=== PATIENT | male | born 1960 | race Caucasian/White ===

== ENCOUNTER → 2018-03-17 15:00 | Outpatient (CLI) | payer OTHER, SELFPAY | DX: Z23 Encounter for immunization (principal) | CPT/HCPCS: 90471; 90686 ==

== ENCOUNTER → 2019-01-12 07:55 | Outpatient (CLI) | payer OTHER, SELFPAY | DX: Z23 Encounter for immunization (principal) | CPT/HCPCS: 90471; 90686 ==

== ENCOUNTER → 2020-01-13 | Outpatient (CLI) | payer OTHER, SELFPAY | PROVIDERS: Referring Provider Internal Medicine; Visit Provider Internal Medicine | DX: Z23 Encounter for immunization (principal) | CPT/HCPCS: 90471; 90686 ==

== ENCOUNTER → 2020-04-13 09:54 | Outpatient (CLI) | payer OTHER, SELFPAY ==
[2020-04-13] MEDS: COVID-19 VACC(MODERNA-1)/PF 100 MCG/0.5 ML VIAL IM (09:59)
== END ==
PROVIDERS: PCP Family Medicine; Visit Provider Internal Medicine
DX: Z23 Encounter for immunization (principal)
CPT/HCPCS: 0011A; 91301

== ENCOUNTER → 2020-05-10 14:56 | Outpatient (CLI) | payer OTHER, SELFPAY ==
[2020-05-10] MEDS: COVID-19 VACC #2, MRNA(MOD) 100 MCG/0.5 ML VIAL IM (15:19)
== END ==
PROVIDERS: PCP Family Medicine; Visit Provider Internal Medicine
DX: Z23 Encounter for immunization (principal)
CPT/HCPCS: 0012A; 91301

== ENCOUNTER → 2021-03-02 09:46 | Outpatient (CLI) | payer OTHER, SELFPAY ==
[2021-03-02] MEDS: COVID-19 VACC #3, MRNA(MOD) 50 MCG/0.25 ML VIAL IM (09:52)
== END ==
PROVIDERS: PCP Family Medicine; Visit Provider Internal Medicine
DX: Z23 Encounter for immunization (principal)
CPT/HCPCS: 0013A; 91301

== ENCOUNTER → 2021-03-07 06:49 | Outpatient (CLI) | payer OTHER, SELFPAY | PROVIDERS: PCP Family Medicine; Referring Provider Internal Medicine; Visit Provider Internal Medicine | DX: Z23 Encounter for immunization (principal) | CPT/HCPCS: 90471; 90686 ==

== ENCOUNTER 2021-04-19 16:54 | Observation (INO) | payer OTHER, SELFPAY ==
[2021-04-19] VITALS (14 sets, daily range): BP systolic 116–139; BP diastolic 68–80; PULSE 62–94; RESP 14–32; TEMP 36.6–37.2; O2SAT 92–100; BMI 27.1
--- NOTE | 2021-04-19 17:01 | DI.CT.S_ITS ---
PROCEDURE: CT HEAD/BRAIN WO CON INDICATIONS: New onset seizure TECHNIQUE: Noncontrast 4.5 mm thick angled axial sections acquired from the foramen magnum to the vertex, with coronal and sagittal reformats. For radiation dose reduction, the following was used: automated exposure control, adjustment of mA and/or kV according to patient size. COMPARISON: None. FINDINGS: Image quality: Study limited secondary to patient positioning. The left posterior scalp in calvarium have been excluded. CSF spaces: Basal cisterns are patent. No extra-axial fluid collections. The ventricles are symmetric in size and shape. Brain: No intracranial bleeds or masses. There is cerebral volume loss for age, with resultant ventricular and sulcal prominence. There are periventricular and deep white matter chronic small vessel ischemic changes. There is intracranial internal carotid artery atherosclerosis. Skull and face: Calvarium and visualized facial bones appear intact, without suspicious lesions. Sinuses: Pansinus mucosal thickening most pronounced in the ethmoid sinuses and right maxillary sinus. Mastoid air cells are clear. IMPRESSION: CT head without acute intracranial abnormalities. No evidence for mass or mass effect. Pansinus disease. Dictated by: Ilan Shields M.D. on 04/19/2021 at 17:19 Approved by: Ilan Shields M.D. on 04/19/2021 at 17:22
[2021-04-19 17:10] LABS: Add Manual Diff / Slide Review NO; Basophils Absolute Auto 100 /uL (0-100); Basophils Percent Auto 0.8 % (0-2); Eosinophils Absolute Auto 200 /uL (0-450); Eosinophils Percent Auto 1.9 % (2-4); Hematocrit 46.9 % (41-53); Hemoglobin 15.6 g/dL (13.5-17.5); Lymphocytes Absolute Auto 4400 /uL (1100-4500); Lymphocytes Percent Auto 38.5 % (25-40); Mean Corpuscular HGB Conc 33.3 % (30-36); Mean Corpuscular Hemoglobin 29.8 PG (26-34); Mean Corpuscular Volume 89.4 fL (80-100); Monocytes Absolute Auto 1400 /uL (0-900); Monocytes Percent Auto 11.8 % (3-14); Neutrophils Absolute Auto 5400 /uL (1500-7000); Platelet Count 217 X10^3/uL (150-400); Red Blood Cell Count 5.24 X10^6/uL (4.5-5.9); Red Cell Distribution Width 13.4 % (11.6-14.8); White Blood Cell Count 11.4 X10^3/uL (4.5-11.0)
[2021-04-19 17:34] LABS: BUN Creatinine Ratio 12.4 (6-22); Blood Urea Nitrogen 13 mg/dL (9-20); Calcium 9.6 mg/dL (8.4-10.2); Carbon Dioxide 13 mmol/L (22-32); Chloride 104 mmol/L (98-107); Estimated Glomerular Filt Rate > 60.0 mL/min (>60); Ethanol (ETOH) < 10 mg/dL; Glucose 133 mg/dL (70-100); HEMOLYSIS < 15 (0-50); Magnesium 2.3 mg/dL (1.6-2.3); Potassium 3.3 mmol/L (3.4-5.1); Sodium 140 mmol/L (137-145)
[2021-04-19 17:50] LABS: Prolactin 45.2 ng/mL (3.7-17.9)
[2021-04-19 18:23] LABS: COVID19 -Nasal RAPID Negative (Negative)
[2021-04-19] MEDS: ONDANSETRON 4 MG/2 ML INJ IV (18:24)
[2021-04-19] MEDS: SODIUM CHLORIDE 0.9% 1,000 ML 150 ML IV (18:24)
[2021-04-19 18:46] LABS: D Dimer 597 ng/mL (<230)
[2021-04-19 18:47] LABS: Troponin I < 0.012 ng/mL (0.01-0.034)
--- NOTE | 2021-04-19 18:50 | DI.CT.S_ITS ---
PROCEDURE: CT ANGIO CHEST PE PROTOCOL INDICATIONS: Syncope. Elevated D-dimer. TECHNIQUE: After the administration of intravenous contrast, 2 mm thick sections acquired from the pulmonary apices to the posterior costophrenic angles. 3-dimensional maximum intensity projection (MIP) coronal and sagittal reformats were then acquired through the thorax. For radiation dose reduction, the following was used: automated exposure control, adjustment of mA and/or kV according to patient size. COMPARISON: None. FINDINGS: Image quality: Excellent. Pulmonary arteries: Pulmonary arteries are normal in size, and demonstrate no intraluminal filling defects to suggest central pulmonary embolism. Lungs and pleura: Lungs are clear. No pleural effusions or pneumothorax. Central and peripheral airways are patent. Mediastinum: Heart size is normal, without pericardial effusion. No mediastinal or hilar adenopathy. Thoracic aorta is normal in caliber and enhancement. Esophagus is normal in caliber, without hiatal hernia. Bones and chest wall: No suspicious bony lesions. Ribs and thoracic spine appear intact throughout. Thyroid gland is unremarkable. No axillary or supraclavicular adenopathy. Abdomen: Visualized upper abdominal solid organs appear normal in the early arterial phase of enhancement. IMPRESSION: No acute cardiopulmonary abnormalities. No acute pulmonary emboli visualized. Dictated by: Ilan Shields M.D. on 04/19/2021 at 19:18 Approved by: Ilan Shields M.D. on 04/19/2021 at 19:21
--- NOTE | 2021-04-19 19:44 | ED.SEIZURE ---
HPI - Seizure General Chief Complaint: Seizure Stated Complaint: Seizure, combative Time Seen by Provider: 04/19/21 17:00 Source: EMS Mode of arrival: EMS Limitations: altered mental status History of Present Illness HPI Narrative: the patient arrives by EMS with new onset seizures. He was a work, staff members noted he collapse only, falling backwards and hitting his head. He had a brief period of generalized tremor or seizure. Activity lasted about 1.5 minutes. Paramedics were called. They did not witness seizure activity. As he was waking, he became combative. Versed 5 mg IM was administered. He was still thrashing about upon arrival. Within minutes he fell asleep. No seizure activity was observed here in the ER. The patient visually well, he is a bit confused. He remembers not feeling well, then the events above apparently occurred. He has no history of seizures. He is on no significant medications or supplements. He consumes alcohol occasionally, no heavy drinking. He smokes marijuana, no other drug use. He denies headache, visual changes, peripheral numbness or weakness. He has no recent injuries. Related Data Home Medications Medication Instructions Recorded Confirmed acetaminophen 325 mg capsule 650 mg PO Q4H PRN 04/19/21 04/19/21 (Tylenol) albuterol sulfate 90 mcg/actuation 2 puff INHALATION Q4-6H PRN 04/19/21 04/19/21 aerosol inhaler (Ventolin HFA) beclomethasone dipropionate 40 2 spray INTRANASAL DAILY 04/19/21 04/19/21 mcg/actuation nasal HFA inhaler cholecalciferol (vitamin D3) 50 50 mcg PO DAILY 04/19/21 04/19/21 mcg (2,000 unit) capsule (Vitamin D3) famotidine 40 mg tablet 40 mg PO DAILY PRN 04/19/21 04/19/21 fexofenadine 180 mg tablet 180 mg PO DAILY 04/19/21 04/19/21 fluocinolone 0.025 % topical 1 applic TOPICAL BID 04/19/21 04/19/21 ointment fluticasone propionate 50 1 spray INTRANASAL DAILY 04/19/21 04/19/21 mcg/actuation nasal spray,suspension (Allergy Relief (fluticasone)) ibuprofen 600 mg tablet 600 mg PO Q6H PRN 04/19/21 04/19/21 ketoconazole 200 mg tablet 200 mg PO DAILY 04/19/21 04/19/21 loratadine-pseudoephedrine ER 10 1 tab PO DAILY PRN 04/19/21 04/19/21 mg-240 mg tablet,extended [id number] (Claritin-D 24 Hour) montelukast 10 mg tablet 10 mg PO DAILY 04/19/21 04/19/21 (Singulair) vit C 250 mg-vit E 200 unit-zinc 1 - 2 tab PO DAILY 04/19/21 04/19/21 12.5 mg-copper 1 [id number] tablet (ICaps AREDS2 (copper citrate)) Allergies Allergy/AdvReac Type Severity Reaction Status Date / Time No Known Drug Allergies Allergy Verified 04/19/21 17:45 Review of Systems Review of Systems Narrative: As per HPI. No other details are available given the patient's medical condition. Patient History Medical History (Updated 04/19/21 @ 20:10 by Osvaldo Gorman MD) Asthma Dependent edema Depression Seasonal allergies Social History Smoking Status: Never smoker Smoking Status: Never smoker alcohol intake frequency: 0-2 drinks per day Alcohol type: wine Substance Use Type: marijuana Exam Initial Vital Signs Initial Vital Signs: Vital Signs Temperature 97.9 F 04/19/21 17:00 Pulse Rate 85 04/19/21 17:00 Respiratory Rate 18 04/19/21 17:00 Blood Pressure 119/70 04/19/21 17:00 Pulse Oximetry 95 04/19/21 17:00 Const Other: initially combative, he appeared to have a 20-30 minute postictal. After awaking, he is calm. He is confused but eventually oriented x3. [facility] Head: normal to inspection, normocephalic and atraumatic Face and sinus: normal facial exam Mouth: oral mucosae normal and mucous membranes abnormal Teeth and gingiva: dentition normal Throat: posterior oropharynx normal Eyes Periorbital: periorbital findings normal Eyelids: eyelids normal Conjunctivae: conjunctivae normal Sclera: sclerae normal Cornea: corneas normal Pupils: PERRL EOM: EOM intact bilaterally Neck Neck: normal visual inspection, full ROM and No tender Chest Chest: normal inspection of the chest Resp Effort & Inspection: normal respiratory effort Auscultation: clear to auscultation bilaterally Cardio Rate: regular rate Rhythm: regular rhythm Heart Sounds: S1 normal, S2 normal and no murmurs GI Inspection: normal to inspection Palpation: soft and No tender Auscultation: normal bowel sounds Back/Spine/Pelvis Back: normal to inspection Cervical Spine: normal cervical lordosis Thoracic/Lumbar Spine: thoracic and lumbar spine normal to inspection Skin General: no rashes or lesions noted Neuro General: patient alert, patient awake, patient oriented x3 and no focal motor deficits ( After recovering from the postictal phase.) Motor: muscle tone normal throughout Sensory Exam: no sensory deficits noted Coordination: aaeexp-cn-nmyg test normal Comatose Patient: corneal reflex present Extrem General: normal to inspection Psych Appearance: well kempt Mental Status: mental status grossly normal Scores NIH Stroke Scale Level of Conciousness: Alert, keenly responsive Ask month/age: Answers both questions correctly. Open/close eyes, close hand: Performs both tasks correctly Best gaze horizontal: Normal Visual madera: No visual loss Facial palsy: Normal symetrical movement Left arm drift: No drift for full 10 sec Right arm drift: No drift for full 10 sec Left leg drift: No drift for full 5 sec Right leg drift: No drift for full 5 sec Limb ataxia: Absent Sensory on face/arms/legs: Normal, no sensory loss Best language: No aphasia, normal Dysarthria: Normal Extinction or inattention: No abnormality Total NIH Stroke scale score: 0 Course Course Course Narrative: The patient appears to had a seizure. He was witnessed by a staff in mental health clinic. He was working there at the time. He has no history of seizure. However I have concerns about syncope versus seizure. he has no calf tenderness. He has an elevated D-dimer. CTA of the chest is normal. Given his age and the significant event, I discussed this case with the hospitalist, TEDDY Murphy. She agreed to admit the patient to observation on telemetry and with neuro checks. Orders Ordered: ED Orders 04/19/21 17:00 Basic Metabolic Panel Stat Complete Blood Count AUTO DIFF Stat D Dimer Stat Ethanol (ETOH) Stat Magnesium Stat Prolactin Stat Troponin I Stat 04/19/21 17:01 CT head/brain wo con Stat Urinalysis Screen (Dip Only) Stat Urine Drug Screen, Rapid Stat 04/19/21 17:02 urine tox [Urine Drug Screen, Rapid] Stat 04/19/21 17:43 COVID19 -Nasal swab/Pre-Proc Stat 04/19/21 18:07 EKG-12 Lead Stat 04/19/21 18:50 CT angio chest PE protocol Stat Sodium Chloride (Normal Saline 0.9%) 1,000 mls @ 150 mls/hr IV CONT JOSE Last Admin: 04/19/21 18:24 Dose: 150 mls/hr Documented by: OMAR Discontinued Medications Levetiracetam 1,000 mg/ Sodium (Chloride) 110 mls @ 440 mls/hr IV NOW ONE Stop: 04/19/21 18:27 Ondansetron HCl (Ondansetron 4 Mg/2 Ml Inj) 4 mg IV NOW ONE Stop: 04/19/21 18:09 Last Admin: 04/19/21 18:24 Dose: 4 mg Documented by: OMAR Vital Signs Vital signs: Vital Signs - 8 hr 04/19/21 17:00 04/19/21 17:19 04/19/21 17:20 Temperature 97.9 F Pulse Rate 85 94 H 90 Respiratory Rate 18 20 19 Blood Pressure 119/70 116/72 Pulse Oximetry 95 96 94 04/19/21 17:30 04/19/21 18:00 04/19/21 18:05 Temperature Pulse Rate 86 82 85 Respiratory Rate 30 H 32 H 32 H Blood Pressure 119/70 130/71 Pulse Oximetry 92 98 100 04/19/21 18:12 04/19/21 18:15 04/19/21 18:30 Temperature Pulse Rate 78 78 76 Respiratory Rate 18 25 H Blood Pressure 129/73 129/73 126/74 Pulse Oximetry 100 99 98 04/19/21 18:45 04/19/21 19:10 04/19/21 19:15 Temperature Pulse Rate 71 70 78 Respiratory Rate 23 24 21 Blood Pressure 125/68 139/80 Pulse Oximetry 99 100 97 04/19/21 19:30 Temperature Pulse Rate 77 Respiratory Rate 20 Blood Pressure Pulse Oximetry 98 MDM - Seizure Lab Data Result diagrams: 04/19/21 17:00 04/19/21 17:00 Labs: Lab Results 04/19/21 04/19/21 04/19/21 Range/Units 17:00 17:00 17:00 WBC 11.4 H (4.5-11.0) X10^3/uL RBC 5.24 (4.5-5.9) X10^6/uL Hgb 15.6 (13.5-17.5) g/dL Hct 46.9 (41-53) % MCV 89.4 (80-100) fL MCH 29.8 (26-34) PG MCHC 33.3 (30-36) % RDW 13.4 (11.6-14.8) % Plt Count 217 (150-400) X10^3/uL Neut % (Auto) 47.0 L (50-75) % Lymph % (Auto) 38.5 (25-40) % Sully % (Auto) 11.8 (3-14) % Eos % (Auto) 1.9 L (2-4) % Baso % (Auto) 0.8 (0-2) % Neut # (Auto) 5400 (1193-2712) /uL Lymph # (Auto) 4400 (5989-9657) /uL Sully # (Auto) 1400 H (0-900) /uL Eos # (Auto) 200 (0-450) /uL Baso # (Auto) 100 (0-100) /uL D-Dimer (<230) ng/mL Sodium 140 (137-145) mmol/L Potassium 3.3 L (3.4-5.1) mmol/L Chloride 104 (98-107) mmol/L Carbon Dioxide 13 L (22-32) mmol/L BUN 13 (9-20) mg/dL Creatinine 1.05 (0.66-1.25) mg/dL Estimated GFR > 60.0 (>60) mL/min BUN/Creatinine Ratio 12.4 (6-22) Glucose 133 H (70-100) mg/dL Calcium 9.6 (8.4-10.2) mg/dL Magnesium 2.3 (1.6-2.3) mg/dL Troponin I (0.01-0.034) ng/mL Prolactin 45.2 H (3.7-17.9) ng/mL Ethyl Alcohol < 10 ( - 10) mg/dL SARS-CoV-2 (PCR) (Negative) 04/19/21 04/19/21 04/19/21 Range/Units 17:00 17:00 17:43 WBC (4.5-11.0) X10^3/uL RBC (4.5-5.9) X10^6/uL Hgb (13.5-17.5) g/dL Hct (41-53) % MCV (80-100) fL MCH (26-34) PG MCHC (30-36) % RDW (11.6-14.8) % Plt Count (150-400) X10^3/uL Neut % (Auto) (50-75) % Lymph % (Auto) (25-40) % Sully % (Auto) (3-14) % Eos % (Auto) (2-4) % Baso % (Auto) (0-2) % Neut # (Auto) (1591-4627) /uL Lymph # (Auto) (1356-0142) /uL Sully # (Auto) (0-900) /uL Eos # (Auto) (0-450) /uL Baso # (Auto) (0-100) /uL D-Dimer 597 H (<230) ng/mL Sodium (137-145) mmol/L Potassium (3.4-5.1) mmol/L Chloride (98-107) mmol/L Carbon Dioxide (22-32) mmol/L BUN (9-20) mg/dL Creatinine (0.66-1.25) mg/dL Estimated GFR (>60) mL/min BUN/Creatinine Ratio (6-22) Glucose (70-100) mg/dL Calcium (8.4-10.2) mg/dL Magnesium (1.6-2.3) mg/dL Troponin I < 0.012 (0.01-0.034) ng/mL Prolactin (3.7-17.9) ng/mL Ethyl Alcohol ( - 10) mg/dL SARS-CoV-2 (PCR) Negative (Negative) Point of Care Testing Glucose POC [address] scan - head: Radiologist's Impression: No acute findings. CT scan - chest: Radiologist's Impression: No PE. No acute findings. ECG Data Attestation: I personally reviewed and interpreted this ECG as follows: ( Normal sinus rhythm rate 82 beats per minute. Normal intervals. No ectopy. No acute ST T wave changes. Cardiac monitoring is normal sinus rhythm without ectopy.) Critical Care Time Critical Care Time Critical Care Time: Yes Total Critical Care Time: 45 Attestation: Critical care time included the initial patient assessment, evaluation EKG, lab in radiology data, and detailed discussion of the situation with the patient. I discussed the patien Discharge Plan Departure Patient Disposition: Admitted as Observation Clinical Impression: New onset seizure Referrals: Tiara Baker MD [Primary Care Provider] -
--- NOTE | 2021-04-19 20:02 | DI.MRI.S_ITS ---
PROCEDURE: MR STROKE Pre- and post-contrast brain MRI, non-contrast brain MR angiogram, pre- and postcontrast neck MR angiogram INDICATIONS: LOC possible Sz vs TIA vs cardiac TECHNIQUE: Brain: Noncontrast axial T1 spin echo, axial T2 fast spin echo, sagittal and axial FLAIR, coronal T2 fast spin echo, axial gradient echo, axial diffusion and ADC through the brain. After the administration of contrast, axial 3D VIBE of the cranial vasculature and brain. Brain MRA: Non-contrast 3-D time of flight MR angiogram, with multiple sgtcnct-crrxreegw-hxssdbkbcz (MIP) reformats performed. Neck MRA: Axial and sagittal TruFISP through the neck. Coronal dynamic MR angiogram during administration of contrast in the arterial and venous phases, with 3-dimenstional bgnsype-baaqvqlyc-pjoiyhqoib (MIP) reformats constructed from subtraction images. COMPARISON: [facility], CT, CT ANGIO CHEST PE PROTOCOL, 04/19/2021, 18:59. [facility], CT, CT HEAD/BRAIN WO CON, 04/19/2021, 17:10. FINDINGS: Image quality: There is motion artifact limiting evaluation. CSF spaces: There is mild cerebral volume loss with prominence of the ventricles and sulci. Basal cisterns are patent. No extra-axial fluid collections. Brain: Diffusion weighted images demonstrate no acute infarcts. No intracranial hemorrhage, mass, or mass effect. Brainstem appears normal. Normal intravascular flow voids are present. No abnormal intracranial enhancement. Skull and face: Calvarial marrow signal is normal. Orbits appear normal. Sinuses: There is moderate mucosal thickening within the ethmoid sinuses and mild mucosal thickening in the frontal and maxillary sinuses. Mastoid air cells are clear. BRAIN MR ANGIOGRAM: Anterior circulation: Intracranial internal carotid arteries are normal in size and patent bilaterally. The flow within the paired anterior cerebral arteries is patent bilaterally. There is a dominant left anterior cerebral artery likely representing an anatomic variant. The flow within the middle cerebral arteries is symmetric and patent bilaterally. The anterior communicating artery is patent. No high-grade stenoses, occlusions, or aneurysms. Posterior circulation: There is a left dominant vertebrobasilar system. The visualized portions of the vertebral arteries are patent and join to form a patent basilar artery. The flow within the posterior cerebral arteries is symmetric and patent bilaterally. No high-grade stenoses, occlusions, or aneurysms. NECK MR ANGIOGRAM: Carotids: Great vessels demonstrate conventional anatomy as they arise from the aortic arch. The origins of the common carotid arteries appear patent. The calibers and courses of both common carotid arteries are normal. The carotid bulbs appear widely patent. The internal carotid arteries demonstrate normal course and caliber. Posterior circulation: The origins of the vertebral arteries appear grossly patent, with evaluation limited by motion artifact. There is a left dominant vertebrobasilar system. More superior portions of both vertebral arteries appear patent, and join to form a normal appearing basilar artery. Miscellaneous: Subclavian arteries appear patent. Pre-contrast images through the neck demonstrate no soft tissue abnormalities. IMPRESSION: BRAIN MRI: 1. No evidence of infarct or other acute intracranial abnormality. 2. Mild cerebral volume loss. BRAIN MR ANGIOGRAM: 1. No high-grade stenosis or occlusion of the central intracranial arteries. 2. Prominent left anterior cerebral artery likely representing an anatomic variant. NECK MR ANGIOGRAM: 1. No high-grade stenosis or occlusion of the head and neck arteries. The carotid bulbs appear widely patent. Dictated by: Torey Hernandez M.D. on 04/19/2021 at 22:26 Approved by: Torey Hernandez M.D. on 04/19/2021 at 22:34
--- NOTE | 2021-04-19 20:05 | DI.ECHO.S_ITS ---
[facility]+ [facility] +---------+ : : [address] [place] : : : : [id number] : : : : Phone: [phone] Echocardiogram Report + + :Name: ROSA YAN Study Date: 04/20/2021 Height: 72 in : :[facility] ReadingLocation: Weight: 200 lb : : Gender: Male BSA: 2.1 m2 : :: 1960 Age: 60 yrs BP: 127/79 mmHg: :Reason For Study: Possible seizure or TIA : :Ordering Physician: : :MIKE ORTEGA [facility]- Performed By: Laron Cerda : :Referring: MIKE ORTEGA : + + Interpretation Summary The ejection fraction is estimated to be 55-60%. Bubble study w valsalva No obvious sign of shunt There is no significant valvular heart disease. Procedure: A two-dimensional transthoracic echocardiogram with color flow and Doppler was performed. The study quality was technically adequate. There is no prior echocardiogram noted for this patient. The subcostal views were difficult to obtain and are suboptimal in quality. The patient was in normal sinus rhythm during the exam. Left Ventricle: The left ventricle is normal in size and wall thickness. The ejection fraction is estimated to be 55-60%. Left ventricular wall motion is normal. Right Ventricle: The right ventricle is normal in size and function. Atria: Both atria are normal in size. Bubble study w valsalva No obvious sign of shunt. Mitral Valve: The mitral valve is normal. There is no mitral regurgitation noted. Aortic Valve: The aortic valve is trileaflet. The aortic valve opens well. No aortic regurgitation is present. Tricuspid Valve: The tricuspid valve is normal. There is a trace or physiologic amount of tricuspid regurgitation. Pulmonary artery pressures cannot be estimated because of the lack of a measurable TR jet velocity. Pulmonic Valve: The pulmonic valve is normal in structure and function. Great Vessels: The aortic root is normal size. The ascending aorta is normal in size. The aortic arch is normal in size. The inferior vena cava was not well visualized. Pericardium/ Pleura There is no pericardial effusion. There is an anterior echo-free space consistent with a fat pad. There is no pleural effusion. MMode/2D Measurements & Calculations LVIDd: 5.3 cm LVOT diam: 2.3 cm LVIDs: 3.6 cm Ao root diam: 3.6 cm FS: 32.8 % asc Aorta Diam: 3.2 cm IVSd: 0.80 cm Ao Arch Diam (Prox Trans): 2.7 cm LVPWd: 0.88 cm LV lewis. diameter/BSA (cm/m^2): 2.5 LV sys. diameter/BSA (cm/m^2): 1.7 LA A2 area: 19.5 cm2 RA long axis: 5.7 cm LA A4 area: 20.2 cm2 RA area: 15.3 cm2 LA length (vol): 5.6 cm RA vol: 35.2 ml LA vol: 59.6 ml RA : 16.5 ml/m2 LA vol index: 28.0 ml/m2 TAPSE: 2.6 cm Doppler Measurements & Calculations Ao V2 max: 157.5 cm/sec LVOT Max Rey: 133.1 cm/sec Ao V2 mean: 116.6 cm/sec LV V1 max P.1 mmHg Ao max P.9 mmHg LV V1 VTI: 23.2 cm Ao mean P.8 mmHg ОЛЕГ(I,D): 3.3 cm2 Ao V2 VTI: 30.3 cm ОЛЕГ(V,D): 3.6 cm2 sev ratio: 0.77 ОЛЕГ indexed to BSA (cm^2/m^2): 1.5 MV E max rey: 74.8 cm/sec PA V2 max: 115.5 cm/sec MV A max rey: 56.7 cm/sec PA V2 mean: 84.6 cm/sec MV E/A: 1.3 PA mean P.1 mmHg Med Peak E' Rey: 9.2 cm/sec PA pr(Accel): 19.1 mmHg E/E' med: 8.2 Lat Peak E' Rey: 12.5 cm/sec E/E' lat: 6.0 E/e' average: 7.1 MV dec time: 0.21 sec SV(LVOT): 99.3 ml Reading Physician:12:52 PM
[2021-04-19 20:29] LABS: Cholesterol 213 mg/dL (140-199); HDL Cholesterol 71 mg/dL (40-60); Hemoglobin A1C% w Est Avg Glu 5.8 % (4.0-6.0); LDL Cholesterol Calculated 116 mg/dL (<100); Triglycerides 130 mg/dL (35-150)
[2021-04-19 20:48] LABS: NT-proBNP (BNP-Adult 18+) 35 pg/mL (<125)
[2021-04-19] MEDS: ATORVASTATIN 20 MG TABLET 80 MG PO (22:15)
[2021-04-19 22:33] LABS: Appearance Urine UA CLEAR; Bilirubin Urine UA NEGATIVE (NEGATIVE); Color Urine UA YELLOW; Glucose Urine UA NEGATIVE (Negative); Ketones Urine UA 2+ (NEGATIVE); Leukocyte Esterase Urine UA NEGATIVE (NEGATIVE); Nitrite Urine UA NEGATIVE (Negative); Occult Blood Urine UA NEGATIVE (Negative); Protein Urine UA NEGATIVE (Negative); RBC Urine 0-1/HPF (0-5/HPF); Squamous Epithelial Cell Urine 0-1 /HPF (0-5/HPF); Urobilinogen Urine UA 0.2 E.U./dL (0.2); WBC Urine None Seen (0-5/HPF)
[2021-04-19 22:34] LABS: Bacteria Urine Occasional (0-1)
[2021-04-19 22:39] LABS: Culture Indicated Urine Cult Not Indicated
[2021-04-20 00:08] VITALS: O2SAT 98
[2021-04-20 01:06] VITALS: BP 127/71; PULSE 99; RESP 18; TEMP 37.5; O2SAT 98
--- NOTE | 2021-04-20 01:13 | PM.HP.1 ---
History of Present Illness History of Present Illness Date Patient Seen: 04/19/21 Time Patient Seen: 20:22 Chief complaint: Seizure, combative Narrative: Yared Wing is a pleasant 60 year old male with a medical history of asthma and depression who arrived by EMS to the ED with reported new onset seizures.? 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 He was reported to have had a brief period of? generalized tremor or seizure. Activity lasted about 1.5 minutes. ? Paramedics were called.? They did not witness seizure activity.? As he was waking, he became combative.? Versed 5 mg IM was administered.? He was still thrashing about upon arrival.? Within minutes he fell asleep.? No seizure activity was observed in the ED.? Upon waking the patient was visually well, a bit confused.?The patient is unable to recall any of the days events, and reports that he had shovel the driveway of snow and felt well this morning. He has no history of seizures, cardiac, stroke, or TIA.? He is on no significant supplements and takes QVAR, Ventolin, singular, a water pill, and medication for depression. He denies any recent illness trauma or injury. Patient reports that only change was that his PCP Dr. Baker had increased his water pill from a half tab to 1 full tab approximately a month and a half ago. Patient denies any issues with blood pressure/hypotension. Patient reports that in the recent past he has been drinking wine daily and recently decreased to a couple times a week. He smokes marijuana regularly, no other drug use.? He denies headache, visual changes, cough, shortness of breath, fever, body aches, chills, abdominal pain, nausea, vomiting, diarrhea, chest pain, peripheral numbness or weakness.? Patient denies any urinary issues or history of UTI, or prostate. Patient also denies any family history of seizure, cardiac, or neurological issues. At the time of admit patient's temp 97.9?, BP 139/80, HR 77, RR 20, 98% on room air. Patient is alert orientated, no deficits noted. Patient does have a WBC count of 11.4, potassium 3.3, bicarb 13, glucose 133, D-dimer of 597. CTA was completed and negative for PE, head CT demonstrated no acute intracranial processes. Patient admitted for loss of consciousness resulting in head injury of unknown etiology, Mild Hypokalemia. 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 Prior Living Arrangements House Safety & Behavioral: Feels Safe in Current Yes Environment Been Physically Hurt or No Threatened By a Person Suicidal Ideation Description None Suicide Plan Description No Plan Tobacco & Substance use: Smoking Status Never smoker alcohol intake current alcohol intake frequency 0-2 drinks per day, hx of daily wine intake. Substance Use Type marijuana Meds Home Medications and Allergies Home Medications Medication Instructions Recorded Confirmed Type acetaminophen 325 mg capsule 650 mg PO Q4H PRN 04/19/21 04/19/21 History (Tylenol) albuterol sulfate 90 mcg/actuation 2 puff INHALATION Q4-6H PRN 04/19/21 04/19/21 History aerosol inhaler (Ventolin HFA) beclomethasone dipropionate 40 2 spray INTRANASAL DAILY 04/19/21 04/19/21 History mcg/actuation nasal HFA inhaler cholecalciferol (vitamin D3) 50 50 mcg PO DAILY 04/19/21 04/19/21 History mcg (2,000 unit) capsule (Vitamin D3) famotidine 40 mg tablet 40 mg PO DAILY PRN 04/19/21 04/19/21 History fexofenadine 180 mg tablet 180 mg PO DAILY 04/19/21 04/19/21 History fluocinolone 0.025 % topical 1 applic TOPICAL BID 04/19/21 04/19/21 History ointment fluticasone propionate 50 1 spray INTRANASAL DAILY 04/19/21 04/19/21 History mcg/actuation nasal spray,suspension (Allergy Relief (fluticasone)) ibuprofen 600 mg tablet 600 mg PO Q6H PRN 04/19/21 04/19/21 History ketoconazole 200 mg tablet 200 mg PO DAILY 04/19/21 04/19/21 History loratadine-pseudoephedrine ER 10 1 tab PO DAILY PRN 04/19/21 04/19/21 History mg-240 mg tablet,extended [id number] (Claritin-D 24 Hour) montelukast 10 mg tablet 10 mg PO DAILY 04/19/21 04/19/21 History (Bookerir) vit C 250 mg-vit E 200 unit-zinc 1 - 2 tab PO DAILY 04/19/21 04/19/21 History 12.5 mg-copper 1 [id number] tablet (ICaps AREDS2 (copper citrate)) Allergies Allergy/AdvReac Type Severity Reaction Status Date / Time No Known Drug Allergies Allergy Verified 04/19/21 17:45 Review of Systems Review of Systems Narrative: All 12 point systems reviewed with the patient and are negative except otherwise documented. Exam Vital Signs (past 8 hours): - 04/19/21 17:19 04/19/21 17:20 04/19/21 17:30 Temperature Pulse Rate 94 H 90 86 Respiratory Rate 20 19 30 H Blood Pressure 116/72 119/70 Pulse Oximetry 96 94 92 04/19/21 18:00 04/19/21 18:05 04/19/21 18:12 Temperature Pulse Rate 82 85 78 Respiratory Rate 32 H 32 H Blood Pressure 130/71 129/73 Pulse Oximetry 98 100 100 04/19/21 18:15 04/19/21 18:30 04/19/21 18:45 Temperature Pulse Rate 78 76 71 Respiratory Rate 18 25 H 23 Blood Pressure 129/73 126/74 125/68 Pulse Oximetry 99 98 99 04/19/21 19:10 04/19/21 19:15 04/19/21 19:30 Temperature Pulse Rate 70 78 77 Respiratory Rate 24 21 20 Blood Pressure 139/80 Pulse Oximetry 100 97 98 04/19/21 21:25 04/20/21 01:06 Temperature 99.0 F 99.5 F Pulse Rate 62 99 H Respiratory Rate 14 18 Blood Pressure 127/79 127/71 Pulse Oximetry 98 98 Oxygen Delivery Method Room Air Oxygen Flow Rate 0 Narrative Exam Narrative: General: Patient is a well-developed, well-nourished delightful male in no distress at this time. HEENT: Normocephalic, atraumatic, extraocular muscles intact, oral pharynx is clear and mucous membranes are moist. Neck is supple and symmetric, trachea is midline, no adenopathy, no thyroid enlargement, nontender, no masses palpated. Negative for JVD Chest: Normal AP diameter and contour without kyphoscoliosis, no nasal flaring, retractions, or tachypneic labored Lungs: Auscultation of all lung mad[place] are clear without adventitious sounds, wheezes, rhonchi, or rales. Cardio: S1 & S2 with regular rate and rhythm without murmur, rubs, or gallops, no carotid bruit, no cardiac pulsations present. Abdomen: Soft nontender, negative for organomegaly, or masses. Bowel sounds are present in all 4 quadrants without guarding or rebound, no CVA tenderness. Musculoskeletal: Muscle strength and tone are equal within normal limits, no deformity, crepitus, effusions, cyanosis, clubbing or edema present. Full range of motion intact radial and pedal pulses are normal. Skin: Warm dry and intact without rashes, ulcerations or petechiae. Neuro: Alert and orientated x3, strength is +5/5 in all extremities, sensation to touch intact, no gross deficits noted of cranial nerves. Psych: Patient has a well-kept appearance, appropriate affect, mental status attitude thought context and judgment are appropriate for age. Objective Labs Result Diagrams: 04/19/21 17:00 04/19/21 17:00 Labs: Laboratory Results - last 24 hr 04/19/21 04/19/21 04/19/21 17:00 17:00 17:00 WBC 11.4 H RBC 5.24 Hgb 15.6 Hct 46.9 MCV 89.4 MCH 29.8 MCHC 33.3 RDW 13.4 Plt Count 217 Neut % (Auto) 47.0 L Lymph % (Auto) 38.5 [place] % (Auto) 11.8 Eos % (Auto) 1.9 L Baso % (Auto) 0.8 Neut # (Auto) 5400 Lymph # (Auto) 4400 [place] # (Auto) 1400 H Eos # (Auto) 200 Baso # (Auto) 100 D-Dimer Sodium 140 Potassium 3.3 L Chloride 104 Carbon Dioxide 13 L BUN 13 Creatinine 1.05 Estimated GFR > 60.0 BUN/Creatinine Ratio 12.4 Glucose 133 H Hemoglobin A1c Calcium 9.6 Magnesium 2.3 Troponin I NT-Pro-B Natriuret Pep Triglycerides Cholesterol LDL Cholesterol, Calc HDL Cholesterol Prolactin 45.2 H Urine Color Urine Appearance Urine pH Ur Specific Bandy Urine Protein Urine Glucose (UA) Urine Ketones Urine Occult Blood Urine Nitrate Urine Bilirubin Urine Urobilinogen Ur Leukocyte Esterase Urine RBC Urine WBC Ur Squamous Epith Cells Urine Bacteria Ur Culture Indicated? Ethyl Alcohol < 10 SARS-CoV-2 (PCR) 04/19/21 04/19/21 04/19/21 17:00 17:00 17:00 WBC RBC Hgb Hct MCV MCH MCHC RDW Plt Count Neut % (Auto) Lymph % (Auto) [place] % (Auto) Eos % (Auto) Baso % (Auto) Neut # (Auto) Lymph # (Auto) [place] # (Auto) Eos # (Auto) Baso # (Auto) D-Dimer 597 H Sodium Potassium Chloride Carbon Dioxide BUN Creatinine Estimated GFR BUN/Creatinine Ratio Glucose Hemoglobin A1c 5.8 Calcium Magnesium Troponin I < 0.012 NT-Pro-B Natriuret Pep Triglycerides Cholesterol LDL Cholesterol, Calc HDL Cholesterol Prolactin Urine Color Urine Appearance Urine pH Ur Specific Bandy Urine Protein Urine Glucose (UA) Urine Ketones Urine Occult Blood Urine Nitrate Urine Bilirubin Urine Urobilinogen Ur Leukocyte Esterase Urine RBC Urine WBC Ur Squamous Epith Cells Urine Bacteria Ur Culture Indicated? Ethyl Alcohol SARS-CoV-2 (PCR) 04/19/21 04/19/21 04/19/21 17:00 17:00 17:43 WBC RBC Hgb Hct MCV MCH MCHC RDW Plt Count Neut % (Auto) Lymph % (Auto) [place] % (Auto) Eos % (Auto) Baso % (Auto) Neut # (Auto) Lymph # (Auto) [place] # (Auto) Eos # (Auto) Baso # (Auto) D-Dimer Sodium Potassium Chloride Carbon Dioxide BUN Creatinine Estimated GFR BUN/Creatinine Ratio Glucose Hemoglobin A1c Calcium Magnesium Troponin I NT-Pro-B Natriuret Pep 35 Triglycerides 130 Cholesterol 213 H LDL Cholesterol, Calc 116 H HDL Cholesterol 71 H Prolactin Urine Color Urine Appearance Urine pH Ur Specific Bandy Urine Protein Urine Glucose (UA) Urine Ketones Urine Occult Blood Urine Nitrate Urine Bilirubin Urine Urobilinogen Ur Leukocyte Esterase Urine RBC Urine WBC Ur Squamous Epith Cells Urine Bacteria Ur Culture Indicated? Ethyl Alcohol SARS-CoV-2 (PCR) Negative 04/19/21 21:30 WBC RBC Hgb Hct MCV MCH MCHC RDW Plt Count Neut % (Auto) Lymph % (Auto) [place] % (Auto) Eos % (Auto) Baso % (Auto) Neut # (Auto) Lymph # (Auto) [place] # (Auto) Eos # (Auto) Baso # (Auto) D-Dimer Sodium Potassium Chloride Carbon Dioxide BUN Creatinine Estimated GFR BUN/Creatinine Ratio Glucose Hemoglobin A1c Calcium Magnesium Troponin I NT-Pro-B Natriuret Pep Triglycerides Cholesterol LDL Cholesterol, Calc HDL Cholesterol Prolactin Urine Color Yellow Urine Appearance Clear Urine pH 8.0 Ur Specific Bandy 1.010 Urine Protein Negative Urine Glucose (UA) Negative Urine Ketones 2+ H Urine Occult Blood Negative Urine Nitrate Negative Urine Bilirubin Negative Urine Urobilinogen 0.2 Ur Leukocyte Esterase Negative Urine RBC 0-1/hpf Urine WBC None seen Ur Squamous Epith Cells 0-1 /hpf Urine Bacteria Occasional (0-1) Ur Culture Indicated? Cult not indicated Ethyl Alcohol SARS-CoV-2 (PCR) Assessment & Plan Assessment & Plan narrative: Yared Wing is a pleasant 60 year old male with a medical history of asthma and depression who arrived by EMS to the ED with reported new onset seizures.? 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 Reported to have had a brief period of? generalized tremor or seizure. Patient admitted for loss of consciousness resulting in head injury of unknown etiology, Mild Hypokalemia. 1. Loss of consciousness, ground level fall, resulting in head injury of unknown etiology, acute, present on admission -seizure verses TIA versus arrhythmia rule out -Suspect possible viral infection- pt may require repeat Covid-19 testing -Sz: patient on strict fall and seizure precautions, monitor for Sz activity. -TIA: Risk stratification: Plavix 75 mg, ASA 81, Lipitor 80 mg, lipids, Brain MRI ordered -cardiac arrhythmia: Heart Score:2 Risk stratification: Telemedicine, trend troponins, echo and stress test ordered. -Dehydration/vasovagal: orthostatics Q shift (dehydration), echo and stress test ordered. -glucose 133- A1C ordered. -NS@75cc/Hr- dehydration. -PT eval for gait/ambulation stability. -Recommend follow-up with Neurology and/or Cardiology for further evaluation. 2. Mild Hypokalemia, acute, present on admission -Potassium 3.3, 20 mEq oral potassium once -Patients will advise the specific name of Water Pill he takes-Likely he will need to reduce dose, as it led to orthostatic hypotension/dehydration. 3. Asthma, chronic, present on admission-stable -continue QVAR, Singulair, Ventolin 4. Overweight as evidence by BMI of 31.4, acute on chronic, present on admission -dietary consult ordered Code status:Full Surrogate decision maker: Pamela Wing (spouse) COVID PCR:Negative DVT/VTE prophylaxis: Lovenox and SCDs Disposition: Patient admitted for observation for loss of consciousness rule out, and risk stratification for TIA or arrhythmia, expected length of stay less than 2 midnights. I have utilized all available immediate resources to obtain, update, or review the patient's current medications. I confirmed that the patient's advanced care plan is present, Code status is documented and/or surrogate decision maker is listed in the patient's medical record. Time Spent With Patient Critical Care time: I spent a total of [] minutes of critical care time on this patient's care today; this time is exclusive of procedural time. Scores GCS Paul coma scale eye opening: Spontaneous Paul coma scale verbal response: Orientated Paul coma scale motor response: Obey commands Simms coma scale total score: 15 NIHSS Level of Conciousness: Alert, keenly responsive Ask month/age: Answers both questions correctly. Open/close eyes, close hand: Performs both tasks correctly Best gaze horizontal: Normal Visual madera: No visual loss Facial palsy: Normal symetrical movement Left arm drift: No drift for full 10 sec Right arm drift: No drift for full 10 sec Left leg drift: No drift for full 5 sec Right leg drift: No drift for full 5 sec Limb ataxia: Absent Sensory on face/arms/legs: Normal, no sensory loss Best language: No aphasia, normal Dysarthria: Normal Extinction or inattention: No abnormality Total NIH Stroke scale score: 0 Quality VTE Deep Vein Thrombosis/Pulmonary Embolism Present on Admission: No
[2021-04-20 04:00] VITALS: O2SAT 98
[2021-04-20 05:00] VITALS: BP 147/78; PULSE 94; RESP 18; O2SAT 99
[2021-04-20 05:42] LABS: INR 1.1 (0.9-1.3)
[2021-04-20 05:43] VITALS: BP 139/93; BP 142/84; BP 147/78; PULSE 112; PULSE 94; PULSE 98
[2021-04-20 05:44] LABS: PTT Partial Thromboplastin Tim 28 SECONDS (26.4-36.2)
[2021-04-20 05:45] LABS: Add Manual Diff / Slide Review NO; Basophils Absolute Auto 0 /uL (0-100); Basophils Percent Auto 0.4 % (0-2); Eosinophils Absolute Auto 0 /uL (0-450); Hematocrit 40.2 % (41-53); Hemoglobin 13.7 g/dL (13.5-17.5); Lymphocytes Absolute Auto 1600 /uL (1100-4500); Lymphocytes Percent Auto 16.6 % (25-40); Mean Corpuscular HGB Conc 34.2 % (30-36); Mean Corpuscular Hemoglobin 29.5 PG (26-34); Mean Corpuscular Volume 86.4 fL (80-100); Monocytes Absolute Auto 1000 /uL (0-900); Monocytes Percent Auto 10.3 % (3-14); Neutrophils Absolute Auto 7200 /uL (1500-7000); Neutrophils Percent Auto 72.7 % (50-75); Platelet Count 176 X10^3/uL (150-400); Red Blood Cell Count 4.65 X10^6/uL (4.5-5.9); Red Cell Distribution Width 13.3 % (11.6-14.8); White Blood Cell Count 9.9 X10^3/uL (4.5-11.0)
[2021-04-20 05:48] LABS: BUN Creatinine Ratio 15.3 (6-22); Blood Urea Nitrogen 13 mg/dL (9-20); Calcium 9.2 mg/dL (8.4-10.2); Carbon Dioxide 27 mmol/L (22-32); Chloride 107 mmol/L (98-107); Estimated Glomerular Filt Rate > 60.0 mL/min (>60); Glucose 110 mg/dL (70-100); HEMOLYSIS < 15 (0-50); Magnesium 2.1 mg/dL (1.6-2.3); Potassium 3.2 mmol/L (3.4-5.1); Sodium 138 mmol/L (137-145)
[2021-04-20 06:10] LABS: Troponin I < 0.012 ng/mL (0.01-0.034)
[2021-04-20 07:55] VITALS: O2SAT 97
--- NOTE | 2021-04-20 10:02 | PT.IIE ---
Medical History (Last Updated 04/20/21 @ 01:27 by Tanja Murphy, [facility]) Acid reflux Asthma Dependent edema Depression Seasonal allergies Physical Therapy Inpatient Evaluation/Re-Eval M1 PT/OT-IP Prior Functional Status Start: 04/20/21 08:16 Freq: Status: Active Protocol: Document 04/20/21 09:35 MB (Rec: 04/20/21 10:02 MB [id number]) Medical Review Prior Functional Status Medical History Reviewed Yes Diet/Fluid Consistency Regular Communication WNLs Mobility and Gait I Activities of Daily Living and IADL's I Prior Functional Level (Other details) I Social History Household Members spouse Living Arrangements House Number of Stairs To Enter/Railing? No steps Additional Social History Comment Pt works M2 PT-IP Current Condition Start: 04/20/21 08:16 Freq: Status: Active Protocol: Document 04/20/21 09:35 MB (Rec: 04/20/21 10:02 MB [id number]) Physical Therapy Current Condition Current Condition Evaluation Date 04/20/21 Treatment Diagnosis S/p seizure M3 PT-IP Subjective Start: 04/20/21 08:16 Freq: Status: Active Protocol: Document 04/20/21 09:35 MB (Rec: 04/20/21 10:02 MB [id number]) Subjective Physical Therapy Visit Type Type Initial Evaluation Visit Start Time 09:35 Visit Stop Time 09:54 Total Visit Minutes 19 Number of INDUSTRIAL SALES ENGINEER Visits 0 Physical Therapy Visit Comments Patient Comments Pt is feeling fine, no pain or dizziness, no concussion symptoms after possibly hitting head during seizure, pt cannot recall event Patient Goals Go home Therapy Pain Assessment Pain When Pain Assessed At Rest Pain Present Pain Present Denied Pain M4 PT-IP Mobility and Gait Start: 04/20/21 08:16 Freq: Status: Active Protocol: Document 04/20/21 09:35 MB (Rec: 04/20/21 10:02 MB [id number]) PT-Bed Mobility Assessment Rolling Level of Assist Independent Supine to Sit Supine to Sit Independent Sit to Supine Sit to Supine Independent Scooting Scooting to Edge of Bed Independent PT-Transfer Assessment Sit to and From Stand Sit to and from Stand Independent Equipment Transfer Assistive Device None Orthotic/Prosthetic Devices or Brace: No Comments Mobility Comments PT manages IV line, pt mobilizes well and quickly without any light-headedness or pain or imbalance Gait Assessment Gait Gait Assistance Required: Independent Distance (Feet) 150 Assistive Devices Assistive Device Gait Belt Orthotic/Prosthetic Devices or Brace: No Gait Deviations General Gait Pattern Within Normal Limits Comments Gait Comments Pt presents with normal gait pattern and good speed, can change direction right and left, peform head turns right and left, walk backwards, walk forwards with eyes closed and go up and down 3 steps with 1 rail without LOB. Stair Climbing Assessment Evaluation Level of Assist On Stairs Independent Devices Stair Climbing Assistive Devices Right Railing Technique/Endurance Stair Climbing Direction Ascend and Descend Stair Climbing Technique Step Over Step Number of Steps Climbed 3 Query Text: Stair Climbing Set # Repetitions (reps) 1 PT-Balance Assessment Sitting Balance and Reactions Static Sitting Balance Ability Normal Dynamic Sitting Balance Ability Normal Standing Balance and Reactions Static Standing Balance Ability Normal Dynamic Standing Balance Ability Normal Comments Other Balance Tests/Deviations/Treatment Normal balance with FGA tasks : described above M5 PT-IP Objective Assessments Start: 04/20/21 08:16 Freq: Status: Active Protocol: Document 04/20/21 09:35 MB (Rec: 04/20/21 10:02 MB [id number]) Orientation Orientation/Cognition Level of Alertness Alert Orientation Name,Birthday,Place,Situation Language Function Ability No Deficits Noted Safety Awareness Understands Safety Issues Memory Description No Deficits Noted Comments Decreased memory around event Gross Range of Motion Upper Extremity ROM Assessment Within Functional Limits Lower Extremity ROM Assessment Within Functional Limits Strength Upper Extremity Strength Assessment Within Functional Limits Lower Extremity Strength Assessment Within Functional Limits Comments Strength Comments Strength functionally assessed with transfers and mobility and is normal M6 PT-IP Treatment Start: 04/20/21 08:16 Freq: Status: Active Protocol: Document 04/20/21 09:35 MB (Rec: 04/20/21 10:02 MB [id number]) Physical Therapy Treatment Education Brace Education Patient,Caregiver Other Treatments Other Treatment Performed Ed pt and in signs and symptoms of concussion to monitor for M7 PT-IP Assessment and Plan Start: 04/20/21 08:16 Freq: Status: Active Protocol: Document 04/20/21 09:35 MB (Rec: 04/20/21 10:02 MB [id number]) PT Summary Assessment and Plan Potential Rehabilitation Potential Excellent Status of Condition at Evaluation Stable Summary Progress Towards Goals Safe For Discharge Assessment Summary Pt is a 60 y/o male presenting with normal transfers, gait and balance s/p seizure. He has no signs and symptoms of concussion. He has no acute PT needs. Will d/c PT. Left pt in bed as found with four rails up and blue cushions in place. Frequency of Treatment Frequency Of Treatment Discharge Recommendations To Nursing Amount of Assist Needed Standby Assistance Discharge Recommendations PT Discharge Recommendations Home with 24/7 Assist Available Transportation Needs at Discharge Private Vehicle
[2021-04-20] MEDS: ASPIRIN EC 81 MG TABLET PO (10:17)
[2021-04-20] MEDS: MONTELUKAST 10 MG TABLET PO (10:17)
[2021-04-20] MEDS: ENOXAPARIN 40 MG/0.4 ML SYRINGE SUBCUT (10:18)
[2021-04-20] MEDS: CLOPIDOGREL 75 MG TABLET PO (10:18)
[2021-04-20] MEDS: FLUTICASONE 120 SPRAY/16 GM SPRAY.SUSP NASAL (10:18)
--- NOTE | 2021-04-20 12:15 | CM.IDA ---
Discharge Planning/Care Management CM Discharge Assessment Start: 04/20/21 12:10 Freq: Status: Active Protocol: Document 04/20/21 12:11 PRESLEY (Rec: 04/20/21 12:15 PRESLEY [id number]) Discharge Planning Assessment Assigned Product Development Consultant LOIS Charles DPOA/Assigned Designee Name Rody Wing, spouse Contact Information [phone] Advance Directives? No History Provided By Patient,Family Member,Medical Record Prior Living Arrangements House Household Members spouse Type of transporation used prior to Drives own vehicle admit Independent with ADL's Yes Is patient alert and oriented? 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 Expect Neuro referral for outpatient f/u by discharging provider
[2021-04-20] MEDS: POTASSIUM CHLORIDE 20 MEQ TAB PO (13:36)
--- NOTE | 2021-04-20 14:51 | P.DS_ITS ---
History of Present Illness History of Present Illness Chief complaint: Seizure, combative Narrative: History of Present Illness History of Present Illness Date Patient Seen:?04/19/21 Time Patient Seen:?20:22 Narrative: Yared Wing is a pleasant 60 year old male with a medical history of asthma and depression who arrived by EMS to the ED with reported new onset seizures.? 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 He was reported to have had a brief period of? generalized tremor or seizure. Activity lasted about 1.5 minutes. ? Paramedics were called.? They did not witness s eizure activity.? As he was waking, he became combative.? Versed 5 mg IM was administered.? He was still thrashing about upon arrival.? Within minutes he fell asleep.? No seizure activity was observed in the ED.? Upon waking the patient was visually well, a bit confused.?The patient is unable to recall any of the days events, and reports that he had shovel the driveway of snow and felt well this morning.? He has no history of seizures, cardiac, stroke,? or TIA.? He is on no significant supplements and takes QVAR, Ventolin, singular, a water pill, and medication for depression.? He denies any recent illness trauma or injury.? Patient reports that only change was that his PCP Dr. Baker had i ncreased his water pill from a half tab to 1 full tab approximately a month and a half ago.? Patient denies any issues with blood pressure/hypotension.? Patient reports that in the recent past he has been drinking wine daily and recently decreased to a couple times a week.? He smokes marijuana regularly, no other drug use.? He denies headache, visual changes, cough, shortness of breath, fever, body aches, chills, abdominal pain, nausea, vomiting, diarrhea, chest pain, peripheral numbness or weakness.? Patient denies any urinary issues or history of UTI, or prostate.? Patient also denies any family history of seizure, cardiac, or neurological issues. At the time of admit patient's temp 97.9?, BP 139/80, HR 77, RR 20, 98% on room air.? Patient is alert orientated, no deficits noted.? Patient does have a WBC count of 11.4, potassium 3.3, bicarb 13, glucose 133, D-dimer of 597.? CTA was completed and negative for PE, head CT demonstrated no acute intracranial processes.? Patient admitted for loss of consciousness resulting in head injury of unknown etiology, Mild Hypokalemia. Discharge Providers Provider Date of admission: 04/19/21 20:24 Discharge Date: 04/20/21 Primary care physician: Tiara Baker MD Consults: 04/20/21 01:52 Consult to Dietitian, Adult Routine Comment: Reason For Exam: Overweight Consult to Physical Therapy Evaluate & Treat Comment: Assess gait/ambulation stability Physician Instructions: Evaluate and Treat Discharge provider: Jyoti Meraz DO Summary Hospital Course Discharge Diagnosis: NEW ONSET SEIZURE. DISCHARGED ON KEPPRA HYPERLIPIDEMIA. ON STATIN ACID REFLUX DISEASE. ON PEPCID HYPOKALEMIA. POTASSIUM REPLACE PRIOR TO DISCHARGE OBESITY. BMI OF 31. EXTENSIVE COUNSELING GIVEN Hospital Course: THIS IS A 60-YEAR-OLD MALE WHO WAS TREATED IN HOSPITAL FOR A NEW ONSET SEIZURE. THE REASON OF THE SEIZURE ISN'T CLEAR. PATIENT HAS NO HISTORY OF PRIOR SEIZURE ACTIVITIES. NO RECENT TRAUMA. PATIENT REPORTED SIGNIFICANT CONFUSION AFTER THE EVENT WHICH IS LIKELY INDIC ATED IF OF POST ICTAL STATE. IN ANY CASE, WORKUP HAS BEEN NEGATIVE SO FAR CTA CHEST, MRI AND CT BRAIN WERE ALL NEGATIVE. HE WILL BE DISCHARGED TO HOME TODAY. HE WILL NEED TO BE REFERRED TO A NEUROLOGIST FOR EEG BY PRIMARY CARE PHYSICIAN. PATIENT WILL NEED TO FOLLOW UP WITH HIS PCP WITHIN 1-2 WEEKS. ACTIVITIES TOLERATED CARDIAC DIET. PATIENT INSTRUCTED TO REFRAIN FROM DRIVING ANY MOTORIZED VEHICLE UNTIL CLEARED BY NEUROLOGY TO DO SO Status at Discharge Cognitive/behavioral status at discharge: oriented Functional status at discharge: independent ambulation Overall status at discharge: patient is back to baseline Time Spent with Patient Time spent: Greater than 30 minutes Exam Vital Signs (past 8 hours): - 04/20/21 07:55 Pulse Oximetry 97 Oxygen Delivery Method Room Air Oxygen Flow Rate 0 Narrative Exam Narrative: NO ACUTE DISTRESS. PATIENT IS ALERT ORIENTED X3. VITAL SIGNS STABLE HEAD ATRAUMATIC NORMOCEPHALIC NECK : SUPPLE WITHOUT ADENOPATHY NO CAROTID BRUITS EYE: EOMI, PERRLA, NORMAL CONJUNCTIVA; NO JAUNDICE CHEST: REGULAR RATE. NO RUBS. PMI IS NON DISPLACED. NO MURMURS; NORMAL S1- S2 PULMONARY: DECREASED BS OVER THE BASES. MILD BIBASILAR CRACKLES NOTED; NO INCREASED DULLNESS TO PERCUSSION ABDOMEN: SOFT. NONTENDER. NONDISTENDED. BOWEL SOUNDS ARE PRESENT IN ALL 4 QUADRANTS. NO MASS. EXTREMITIES: NO EDEMA.. NO CYANOSIS CLUBBING NOTED. NEURO: CRANIAL NERVES 2-12 GROSSLY INTACT. NO FOCAL NEUROLOGICAL DEFICIT NOTED. MSK: NORMAL RANGE OF MOTION FOR AGE. NO JOINT EFFUSION. SKIN: NORMAL FOR ETHNICITY; NO ECCHYMOSIS. NO LESION. GOOD TURGOR.; NO RASHES : NORMAL EXTERNAL GENITALIA. PSYCH : APPROPRIATE MOOD AND AFFECT. ALERT AWAKE ORIENTED X3 Objective Labs Result Diagrams: 04/20/21 05:20 04/20/21 05:20 Labs: Laboratory Results - last 24 hr 04/19/21 04/19/21 04/19/21 17:00 17:00 17:00 WBC 11.4 H RBC 5.24 Hgb 15.6 Hct 46.9 MCV 89.4 MCH 29.8 MCHC 33.3 RDW 13.4 Plt Count 217 Neut % (Auto) 47.0 L Lymph % (Auto) 38.5 Addison % (Auto) 11.8 Eos % (Auto) 1.9 L Baso % (Auto) 0.8 Neut # (Auto) 5400 Lymph # (Auto) 4400 Addison # (Auto) 1400 H Eos # (Auto) 200 Baso # (Auto) 100 PT INR APTT D-Dimer Sodium 140 Potassium 3.3 L Chloride 104 Carbon Dioxide 13 L BUN 13 Creatinine 1.05 Estimated GFR > 60.0 BUN/Creatinine Ratio 12.4 Glucose 133 H Hemoglobin A1c Calcium 9.6 Magnesium 2.3 Troponin I NT-Pro-B Natriuret Pep Triglycerides Cholesterol LDL Cholesterol, Calc HDL Cholesterol Prolactin 45.2 H Urine Color Urine Appearance Urine pH Ur Specific [place] Urine Protein Urine Glucose (UA) Urine Ketones Urine Occult Blood Urine Nitrate Urine Bilirubin Urine Urobilinogen Ur Leukocyte Esterase Urine RBC Urine WBC Ur Squamous Epith Cells Urine Bacteria Ur Culture Indicated? Ethyl Alcohol < 10 SARS-CoV-2 (PCR) 04/19/21 04/19/21 04/19/21 17:00 17:00 17:00 WBC RBC Hgb Hct MCV MCH MCHC RDW Plt Count Neut % (Auto) Lymph % (Auto) [place] % (Auto) Eos % (Auto) Baso % (Auto) Neut # (Auto) Lymph # (Auto) [place]ison # (Auto) Eos # (Auto) Baso # (Auto) PT INR APTT D-Dimer 597 H Sodium Potassium Chloride Carbon Dioxide BUN Creatinine Estimated GFR BUN/Creatinine Ratio Glucose Hemoglobin A1c 5.8 Calcium Magnesium Troponin I < 0.012 NT-Pro-B Natriuret Pep Triglycerides Cholesterol LDL Cholesterol, Calc HDL Cholesterol Prolactin Urine Color Urine Appearance Urine pH Ur Specific [place] Urine Protein Urine Glucose (UA) Urine Ketones Urine Occult Blood Urine Nitrate Urine Bilirubin Urine Urobilinogen Ur Leukocyte Esterase Urine RBC Urine WBC Ur Squamous Epith Cells Urine Bacteria Ur Culture Indicated? Ethyl Alcohol SARS-CoV-2 (PCR) 04/19/21 04/19/21 04/19/21 17:00 17:00 17:43 WBC RBC Hgb Hct MCV MCH MCHC RDW Plt Count Neut % (Auto) Lymph % (Auto) [place] % (Auto) Eos % (Auto) Baso % (Auto) Neut # (Auto) Lymph # (Auto) Addison # (Auto) Eos # (Auto) Baso # (Auto) PT INR APTT D-Dimer Sodium Potassium Chloride Carbon Dioxide BUN Creatinine Estimated GFR BUN/Creatinine Ratio Glucose Hemoglobin A1c Calcium Magnesium Troponin I NT-Pro-B Natriuret Pep 35 Triglycerides 130 Cholesterol 213 H LDL Cholesterol, Calc 116 H HDL Cholesterol 71 H Prolactin Urine Color Urine Appearance Urine pH Ur Specific [place] Urine Protein Urine Glucose (UA) Urine Ketones Urine Occult Blood Urine Nitrate Urine Bilirubin Urine Urobilinogen Ur Leukocyte Esterase Urine RBC Urine WBC Ur Squamous Epith Cells Urine Bacteria Ur Culture Indicated? Ethyl Alcohol SARS-CoV-2 (PCR) Negative 04/19/21 04/20/21 04/20/21 21:30 05:20 05:20 WBC 9.9 RBC 4.65 Hgb 13.7 Hct 40.2 L MCV 86.4 D MCH 29.5 MCHC 34.2 RDW 13.3 Plt Count 176 Neut % (Auto) 72.7 D Lymph % (Auto) 16.6 L D [place] % (Auto) 10.3 Eos % (Auto) 0.0 L Baso % (Auto) 0.4 Neut # (Auto) 7200 H Lymph # (Auto) 1600 [place]ison # (Auto) 1000 H Eos # (Auto) 0 Baso # (Auto) 0 PT INR APTT D-Dimer Sodium Potassium Chloride Carbon Dioxide BUN Creatinine Estimated GFR BUN/Creatinine Ratio Glucose Hemoglobin A1c Calcium Magnesium Troponin I < 0.012 NT-Pro-B Natriuret Pep Triglycerides Cholesterol LDL Cholesterol, Calc HDL Cholesterol Prolactin Urine Color Yellow Urine Appearance Clear Urine pH 8.0 Ur Specific [place] 1.010 Urine Protein Negative Urine Glucose (UA) Negative Urine Ketones 2+ H Urine Occult Blood Negative Urine Nitrate Negative Urine Bilirubin Negative Urine Urobilinogen 0.2 Ur Leukocyte Esterase Negative Urine RBC 0-1/hpf Urine WBC None seen Ur Squamous Epith Cells 0-1 /hpf Urine Bacteria Occasional (0-1) Ur Culture Indicated? Cult not indicated Ethyl Alcohol SARS-CoV-2 (PCR) 04/20/21 04/20/21 05:20 05:20 WBC RBC Hgb Hct MCV MCH MCHC RDW Plt Count Neut % (Auto) Lymph % (Auto) [place] % (Auto) Eos % (Auto) Baso % (Auto) Neut # (Auto) Lymph # (Auto) [place]ison # (Auto) Eos # (Auto) Baso # (Auto) PT 12.0 INR 1.1 APTT 28 D-Dimer Sodium 138 Potassium 3.2 L Chloride 107 Carbon Dioxide 27 BUN 13 Creatinine 0.85 Estimated GFR > 60.0 BUN/Creatinine Ratio 15.3 Glucose 110 H Hemoglobin A1c Calcium 9.2 Magnesium 2.1 Troponin I NT-Pro-B Natriuret Pep Triglycerides Cholesterol LDL Cholesterol, Calc HDL Cholesterol Prolactin Urine Color Urine Appearance Urine pH Ur Specific [place] Urine Protein Urine Glucose (UA) Urine Ketones Urine Occult Blood Urine Nitrate Urine Bilirubin Urine Urobilinogen Ur Leukocyte Esterase Urine RBC Urine WBC Ur Squamous Epith Cells Urine Bacteria Ur Culture Indicated? Ethyl Alcohol SARS-CoV-2 (PCR) [facility] Medical History (Updated 04/20/21 @ 01:27 by AMADOR Wong) Acid reflux Asthma Dependent edema Depression Seasonal allergies Surgical History (Updated 04/20/21 @ 01:27 by AMADOR Wong) History of dental surgery History of vasectomy Family History (Updated 04/20/21 @ 01:30 by AMADOR Wong) Mother Glaucoma Dementia Father Cancer Social History household members: spouse Smoking Status: Never smoker alcohol intake: current Discharge Plan Discharge Plan Patient Disposition: Home Discharge orders & Medications Prescriptions: New atorvastatin 20 mg tablet 20 mg PO BEDTIME Qty: 60 2RF levetiracetam 250 mg Tablet 500 mg PO BID Qty: 60 2RF Continued ketoconazole 200 mg Tablet 200 mg PO DAILY 0RF famotidine 40 mg Tablet 40 mg PO DAILY PRN (Reason: Acid Reflux) 0RF fexofenadine 180 mg Tablet 180 mg PO DAILY 0RF loratadine-pseudoephedrine [Claritin-D 24 Hour] 10-240 mg Tablet Extended Release 24 Hr 1 tab PO DAILY PRN (Reason: Allergy Symptoms) 0RF montelukast [Singulair] 10 mg Tablet 10 mg PO DAILY 0RF fluocinolone 0.025 % Ointment 1 applic TOPICAL BID 0RF ibuprofen 600 mg Tablet 600 mg PO Q6H PRN (Reason: Pain (Scale Score 1-3)) 0RF albuterol sulfate [Ventolin HFA] 90 mcg/actuation Hfa Aerosol Inhaler 2 puff INHALATION Q4-6H PRN (Reason: Shortness Of Breath) 0RF fluticasone propionate [Allergy Relief (fluticasone)] 50 mcg/actuation [place],Suspension 1 spray INTRANASAL DAILY 0RF Rx Instructions: administer into each nostril acetaminophen [Tylenol] 325 mg Capsule 650 mg PO Q4H PRN (Reason: Pain (Scale Score 1-3)) 0RF cholecalciferol (vitamin D3) [Vitamin D3] 50 mcg (2,000 unit) Capsule 50 mcg PO DAILY 0RF beclomethasone dipropionate 40 mcg/actuation Hfa Aerosol Inhaler 2 spray INTRANASAL DAILY 0RF Rx Instructions: administer into each nostril ICaps AREDS2 (copper citrate) 250 mg-200 unit -12.5 mg-1 mg Tablet 1 - 2 tab PO DAILY 0RF Follow up/Referrals: Tiara Baker MD [Primary Care Provider] - Diet/Activity/Treatments Diet: Low-fat and Low-cholesterol Activity: TOLERATED. AVOID DRIVING ANY MOTORIZED VEHICLE UNTIL CLEARED BY NEUROLOGIST OR PRIMARY CARE Discharge Data Primary Care Provider: Tiara Baker Attending Provider: Tanja Murphy VTE Deep Vein Thrombosis/Pulmonary Embolism Present on Admission: No
[2021-04-20 15:13] LABS: Creatine Kinase 491 U/L (55-170)
[2021-04-20] MEDS: levETIRAcetam 250 MG TABLET 1000 MG PO (16:59)
--- NOTE | 2021-04-20 17:58 | PC.NURSE ---
Discharge: Pt feels ready to d/c home. No seizure activity seen. Seen by MD and given d/c instructions. Reviewed d/c packet. Questions answered. Spouse at bedside. Pt also given work release note. Pt d/c to home via auto w/spouse.
== END 2021-04-20 17:10 | disposition home or self-care (01) ==
LOC: ED 20:10 → AC 20:26
PROVIDERS: Hospitalist; Admitting Provider Nurse Practitioner Family; Emergency Provider Emergency Medicine; PCP Family Medicine; Referring Provider Emergency Medicine; Visit Provider Nurse Practitioner Family
DX: R56.9 Unspecified convulsions (principal); R55 Syncope and collapse; W01.10XA Fall on same level from slipping, tripping and stumbling with subsequent striking against unspecified object, initial encounter; Y92.531 Health care provider office as the place of occurrence of the external cause; R29.700 NIHSS score 0; E87.6 Hypokalemia; J45.909 Unspecified asthma, uncomplicated; K21.9 Gastro-esophageal reflux disease without esophagitis; E66.3 Overweight; Z68.31 Body mass index [BMI] 31.0-31.9, adult; E78.5 Hyperlipidemia, unspecified; Z20.822 Contact with and (suspected) exposure to COVID-19
CPT/HCPCS: 36415; 70450; 70548; 70553; 71275; 80048; 80061; 80320; 81001; 82550; 82962; 83036; 83735; 83880; 84146; 84484; 85025; 85379; 85610; 85730; 87635; 93005; 93010; 93306; 96361; 96372; 96374; 97161; 99285; 99291; C9803; G0378; A9579; J1650; J2405; Q9967